=== PATIENT | female | born 2000 | race Caucasian/White ===

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

== ENCOUNTER 2022-09-07 13:41 | Outpatient (REF) | payer MEDICAID, SELFPAY ==
[2022-09-07 15:38] LABS: Abs Immature Grans 0.01 10^3/uL (0.0-0.06); Absolute Basophil Count 0.05 10^3/uL (0.0-0.2); Absolute Eosinophil Count 0.11 10^3/uL (0.0-0.7); Absolute Lymphocyte Count 2.68 10^3/uL (1.2-3.4); Absolute Monocyte Count 0.31 10^3/uL (0.1-0.8); Absolute Neutrophil Count 2.76 10^3/uL (1.2-6.7); Basophils % 0.8; Eosinophils % 1.9; HCT 41.4 % (36.0-46.0); Immature Grans % 0.2; Lymphocytes % 45.3; MCH 29.4 pg (27.0-33.0); MCHC 33.8 % (32.0-36.0); MCV 87 fL (80-95); MPV 11.2 fL (8.0-11.0); Monocytes % 5.2; Neutrophils % 46.6; Platelet Count 329 10^3/uL (130-400); RBC 4.76 10^6/uL (3.93-5.22); RDW 11.6 % (11.7-14.6); RDW-SD 36.9 fL; WBC 5.92 10^3/uL (4.4-10.8)
[2022-09-07 16:00] LABS: ALT 17 U/L (14-59); AST 22 U/L (15-37); Albumin 4.1 g/dL (3.4-5.0); Alkaline Phosphatase 87 U/L (46-116); Anion Gap 9.9 mmol/L (3-11); BUN 9 mg/dL (7-18); Bilirubin, Total 0.4 mg/dL (0.2-1.0); CO2 23.1 mmol/L (21.0-32.0); CREATININE 0.8 mg/dL (0.55-1.02); Chloride 106 mmol/L (98-107); Estimated GFR 108.11 (mL/min/1.73m2); Glucose 99 mg/dL (74-106); Potassium 4.4 mmol/L (3.5-5.1); Sodium 139 mmol/L (136-145); Total Protein 7.8 g/dL (6.4-8.2)
== END 2022-09-07 13:42 | disposition home or self-care (01) ==
LOC: NCHCN 13:41
PROVIDERS: Visit Provider Family Medicine
DX: R10.9 Unspecified abdominal pain (principal)
CPT/HCPCS: 80053; 85025

== ENCOUNTER 2022-09-16 19:05 | Emergency (ER) | payer MEDICAID, SELFPAY ==
[2022-09-16 19:12] VITALS: BP 128/82; PULSE 103; RESP 20; O2SAT 98
--- NOTE | 2022-09-16 21:00 | DI.RAD_ITS ---
Exam(s) XR FOOT RT COMPLETE EXAM: XR FOOT RT COMPLETE CLINICAL HISTORY: blunt trauma to distal 1-2nd metatarsal. TECHNIQUE: 2D digital imaging was performed. COMPARISON: No exams were available for comparison FINDINGS: 3 views No evidence of fracture or diastasis of the Elise odilon joint. Bone density normal. No osseous lesion s. No radiopaque foreign body. No degenerative changes. No osseous tarsal coalition. IMPRESSION: No significant osseous findings. DATA REPOSITORY: RADIATION DOSE DELIVERED:
[2022-09-16] MEDS: Ibuprofen 600 MG TAB PO (21:25)
--- NOTE | 2022-09-16 21:48 | DI.VRAD_ITS ---
PROCEDURE INFORMATION: Exam: XR Right Foot Exam date and time: 09/16/2022 21:28 Age: 22 years old Clinical indication: Injury or trauma; Other: Trauma to distal 1-2 metatarsal; Blunt trauma; Foot; Right TECHNIQUE: Imaging protocol: Radiologic exam of the right foot. Views: 3 or more views. COMPARISON: No relevant prior studies available. FINDINGS: Bones/joints: Minor hallux valgus and pes cavus. No acute fracture or subluxation. Soft tissues: Normal. IMPRESSION: No acute bony pathology. Dictated and Authenticated by: Chel Hernandez MD. Ordering:JANET Gibson MD
--- NOTE | 2022-09-16 21:50 | W.ED.GENAD ---
Discharge Plan Disposition Patient Disposition: Home Discharge Details Clinical Impression: Contusion of foot, right Primary Care Provider: Zora Ventura ED Provider: Arthur Kamara Home Meds and New Rx's Prescriptions: No Action polyethylene glycol 3350 [GlycoLax] 17 gram/dose powder 17 g PO DAILY Qty: 510 6RF Rx Instructions: 1 capful daily mixed with fluids- increase or decrease as needed to keep stools soft medroxyprogesterone [Depo-Provera] 150 mg/mL suspension 150 mg IM Q 12 WEEKS Qty: 1 3RF dexmethylphenidate [Focalin XR] 10 mg Capsule,Er Biphasic 50-50 10 mg PO DAILY fluoxetine 10 mg Tablet 10 mg PO DAILY Discharge Instructions Instructions: Foot Contusion (ED) Additional Instructions: You may continue to use [id number] ibuprofen as needed for further discomfort. You may perform weightbearing activities as tolerated feel free to return the emergency department for new or significant worsening of symptoms and if not improving over the next 1 to 2 weeks please follow with your primary care provider for reassessment. Referrals: Zora Ventura [Primary Care Provider] - Discharge Data Discharge Date/Time-TO BE ENTERED AT DEPARTURE: 09/16/22 22:00 Medical Decision Making Patient presenting the emergency department for chief complaint of right foot injury. She states she was jumping on trampoline and struck it on a table. Patient denies any other injury or trauma. Physical exam shows ecchymosis with slight swelling and tenderness to the distal aspects of the first and second metatarsal. Exam is otherwise unremarkable. Will perform radiological imaging and give ibuprofen pending results. Review of radiological imaging and radiologist interpretation shows no acute bony pathology. Patient given postop shoe and recommended weightbearing as tolerated along with [id number] meds and conservative management. After discussion of diagnosis and plan of care patient has no further needs, questions, or concerns and states clear understanding to return to the emergency department for any worsening symptoms. This documentation was generated using [employer] system, please disregard any oddities of phrase or misspellings. Imaging Data Radiologic Study: Attestation: I personally reviewed and interpreted this imaging study as follows: Imaging: X-Ray Radiologist's impression: Exam(s) PROCEDURE INFORMATION: Exam: XR Right Foot Exam date and time: 09/16/2022 21:28 Age: 22 years old Clinical indication: Injury or trauma; Other: Trauma to distal 1-2 metatarsal; Blunt trauma; Foot; Right TECHNIQUE: Imaging protocol: Radiologic exam of the right foot. Views: 3 or more views. COMPARISON: No relevant prior studies available. FINDINGS: Bones/joints: Minor hallux valgus and pes cavus. No acute fracture or subluxation. Soft tissues: Normal. IMPRESSION: No acute bony pathology. HPI General Mode of arrival: wheelchair. Date/Time Provider Initiated Documentation: 09/16/22 20:58. Limitations to Documentation: no limitations. Information obtained by: patient, family and RN notes reviewed. History of Present Illness 22 year old F presents to the emergency department with the chief complaint of Right foot injury, described as severe, with intensity rated at 10. Quality is described as sharp, and is localized to the right and lower extremity. Patient reports no radiation. Patient started experiencing this hour(s) (1) and it has been constant. No relieving factors improve symptom(s), No exacerbating factors reported . Patient notes no other symptoms.. Patient did receive the following treatments prior to arrival, none Related Data Home Medications Medication Instructions Recorded Confirmed polyethylene glycol 3350 17 17 g PO DAILY #510 grams 04/05/20 09/16/22 gram/dose oral powder (GlycoLax) medroxyprogesterone 150 mg/mL 150 mg IM Q 12 WEEKS #1 vial 11/18/20 09/16/22 intramuscular suspension (Depo-Provera) dexmethylphenidate 10 mg 10 mg PO DAILY 09/16/22 09/16/22 capsule,extended release [id number] (Focalin XR) fluoxetine 10 mg tablet 10 mg PO DAILY 09/16/22 09/16/22 Previous Rx's Medication Instructions Recorded polyethylene glycol 3350 17 17 g PO DAILY #510 grams 04/05/20 gram/dose oral powder (GlycoLax) medroxyprogesterone 150 mg/mL 150 mg IM Q 12 WEEKS #1 vial 11/18/20 intramuscular suspension (Depo-Provera) Allergies Allergy/AdvReac Type Severity Reaction Status Date / Time No Known Allergies Allergy Verified 06/10/21 08:31 General Stated Complaint: Orthopedic GURU: 3 Review of Systems Narrative: 6 systems reviewed and unremarkable except what is marked below. Musculoskeletal Musculoskeletal: Reports as per HPI, Reports arthralgias, Reports joint swelling, Reports limited range of motion and Reports tingling Integumentary/Breasts Skin/Breast: Denies wounds Neurologic Neurologic: Denies sensory deficit and Reports tingling PFSH All Active Problems (Updated 09/16/22 @ 21:55 by Arthur Kamara NP) Contusion of foot, right (Acute) Alleged drug diversion (Acute) SEE 01/10/20 NOTE CONCERN FOR DIVERSION BY MOM- will restart meds but just am vyvanse and not adderall in afternoon Attention deficit hyperactivity disorder (Acute 10/04/12) Medical History (Updated 09/16/22 @ 21:55 by Arthur Kamara NP) Acute pharyngitis ADHD (attention deficit hyperactivity disorder) Constipation Depo-Provera contraceptive status Learning difficulty Menorrhagia with irregular cycle Menorrhagia with regular cycle Upper respiratory infection Surgical History Tonsillectomy and adenoidectomy Family History Mother Hypothyroid Mental disorder Father Essential hypertension Hyperlipidemia Mental disorder Sister Age: 28 No problems noted. Sister Age: 24 No problems noted. Brother Age: 26 No problems noted. Grandfather Stroke Oral cancer Grandmother Colon cancer Ovarian cancer Other Short stature Social History Smoking/Tobacco Use Status: Current-Occasional Tobacco Type: cigarettes Smoking risk assessment performed?: Yes Alcohol Intake: never Substance use type: does not use Pets and animals: No Do you feel safe at home: Yes Do you feel safe in your relationship?: Yes Additional Social history: pt is not alone, unable to assess privately Female Reproductive History Menstrual control method: none History History 0 Para Hx # Term Pregnancies Multiple births Hx # Pregnancies Ectopic pregnancies AB induced Hx Number of Living Children AB spontaneous Exam Const General: cooperative, no acute distress and not ill appearing Orientation: alert, awake and oriented x3 HENMT Mouth: moist mucous membranes Resp Effort & Inspection: normal respiratory effort, able to speak in complete sentences and no respiratory distress Cardio Rate: regular rate Rhythm: regular rhythm Pulses: normal peripheral pulses Skin General skin exam: no rashes or lesions noted Neuro General: patient alert, patient awake, patient oriented x3, moves all extremities and no focal motor deficits Sensory Exam: no sensory deficits noted Extrem General: normal exam except as noted Right lower extremity: foot Details: normal capillary refill, tenderness Location: of the dorsal foot Location: distally and medially, toes with normal ROM, ecchymosis dorsal distal Details: single, vascular exam Details: dorsalis pedis pulse present and normal capillary refill and motor-sensory exam Details: two point discrimination normal and light-touch normal; no unusual warmth Course Vital Signs Vital signs: Vital Signs Pulse 103 H 09/16/22 19:12 Respiratory Rate 20 09/16/22 19:12 Blood Pressure 128/82 09/16/22 19:12 Pulse Oximetry 98 09/16/22 19:12 Pulse 103 H 09/16/22 19:12 Respiratory Rate 20 09/16/22 19:12 Respiratory Effort Normal 09/16/22 19:41 Blood Pressure 128/82 09/16/22 19:12 Pulse Oximetry 98 09/16/22 19:12 Oxygen Delivery Method Room Air 09/16/22 19:12 Oxygen Flow Rate 0 09/16/22 19:12 Pain Level 10 09/16/22 19:12 Lab/Test Results Lab/Test Results: POC- Test(urine) Negative
[2022-09-16 21:58] VITALS: BP 110/70; PULSE 72; RESP 16; O2SAT 98
== END 2022-09-16 22:00 | disposition home or self-care (01) ==
PROVIDERS: Emergency Provider Nurse Practitioner Family; PCP Nurse Practitioner Family
DX: S90.31XA Contusion of right foot, initial encounter (principal); Y99.8 Other external cause status; Y93.44 Activity, trampolining
CPT/HCPCS: 81025; 99283; 73630

== ENCOUNTER 2023-10-27 14:22 | Outpatient (REF) | payer MEDICAID, SELFPAY ==
--- NOTE | 2023-10-27 11:40 | PAPFT_PTH ---
PATIENT: Bethel Whitt LOC: [facility]#:[id number] AGE/SX: 23/F ROOM: RE10/27/[address]: Zora Ventura : 2000 BED: DIS: 10/27/2023 SPEC #: [id number] RECD: 10/28/23 12:27 STATUS: KERRI RETiana #: [id number] SAVANNAH: 10/27/23 11:[address]: Zora Ventura DEPT: [facility] Cytology RECD BY: Leigh Shrestha ENTERED: 10/28/23 12:28 SP TYPE: PAPFT OTHR DR: Unknown,Unknown Tissues: 1 - CX/ENDOCX FOR PAP SMEARS Procedures: PAP THIN PREP/UVM Screening Comments: [id number] (CHLAMYDIA/GC)
[2023-10-29 13:42] LABS: Chlamydia Result Negative (Negative); GC Result Negative (Negative)
== END 2023-10-27 14:23 | disposition home or self-care (01) ==
LOC: NCHCN 14:22
PROVIDERS: Visit Provider Nurse Practitioner Family
DX: Z00.00 Encounter for general adult medical examination without abnormal findings (principal); Z12.4 Encounter for screening for malignant neoplasm of cervix; Z11.51 Encounter for screening for human papillomavirus (HPV)
CPT/HCPCS: 87491; 87591; 88142

== ENCOUNTER 2025-01-08 19:44 | Emergency (ER) | payer MEDICAID, SELFPAY ==
[2025-01-08 19:46] VITALS: BP 131/95; PULSE 88; RESP 18; TEMP 36.6; O2SAT 98
[2025-01-08 20:04] VITALS: BP 131/95; PULSE 88; RESP 18; TEMP 36.6; O2SAT 98
[2025-01-08 20:27] LABS: Glucose Negative (Negative)
[2025-01-08] MEDS: Normal Saline 1,000 ML 1000 ML IV (20:30)
[2025-01-08 20:33] LABS: C & S Indicated? No
[2025-01-08 20:40] LABS: Abs Immature Grans 0.03 10^3/uL (0.0-0.06); HCT 40.0 % (36.0-46.0); HGB 13.5 g/dL (11.2-15.7); Immature Grans % 0.3 %; MCH 28.9 pg (27.0-33.0); MCHC 33.8 % (32.0-36.0); MCV 86 fL (80-95); MPV 10.5 fL (8.0-11.0); Platelet Count 326 10^3/uL (130-400); RBC 4.67 10^6/uL (3.93-5.22); RDW 11.9 % (11.7-14.6); RDW-SD 36.7 fL; WBC 9.05 10^3/uL (4.4-10.8)
[2025-01-08 20:54] LABS: ALT 41 U/L (14-59); AST 24 U/L (15-37); Albumin 4.0 g/dL (3.4-5.0); Alkaline Phosphatase 86 U/L (46-116); Anion Gap 7.1 mmol/L (3-11); BUN 6 mg/dL (7-18); Bilirubin, Total 0.3 mg/dL (0.2-1.0); CO2 26.9 mmol/L (21.0-32.0); Calcium 9.1 mg/dL (8.5-10.1); Chloride 105 mmol/L (98-107); Estimated GFR 106.77 (mL/min/1.73m2); Glucose 95 mg/dL (74-106); Lipase 37 U/L (<78); Potassium 3.8 mmol/L (3.5-5.1); Sodium 139 mmol/L (136-145); Total Protein 7.4 g/dL (6.4-8.2)
[2025-01-08 22:08] VITALS: BP 97/71; PULSE 85; RESP 16; O2SAT 99
--- NOTE | 2025-01-08 22:15 | W.ED.GENAD ---
Discharge Plan Disposition Patient Disposition: Home Condition: Stable Discharge Details Clinical Impression: Abdominal pain, Nausea & vomiting Primary Care Provider: Unknown,Unknown ED Provider: Bee Hinds Home Meds and New Rx's Prescriptions: New prochlorperazine maleate [Compazine] 5 mg tablet 5 mg PO BID PRNQty: 10 0RF Continued polyethylene glycol 3350 [GlycoLax] 17 gram/dose powder 17 g PO DAILY Qty: 510 6RF Rx Instructions: 1 capful daily mixed with fluids- increase or decrease as needed to keep stools soft fluoxetine 10 mg Tablet 10 mg PO DAILY Patient Comments: last taken 2 weeks ago quetiapine 50 mg tablet 50 mg PO HS Patient Comments: TAKE ONE TABLET BY MOUTH EVERY NIGHT NEEDED FOR SLEEP/ANXIETY Discharge Instructions Instructions: Viral Pharyngitis, Abdominal Pain, Adult ED, Nausea and Vomiting, Adult ED Additional Instructions: I ordered an ultrasound to evaluate your gallbladder, call first thing morning to schedule an appointment compazine as needed for nausea and vomiting Take Motrin and Tylenol as needed for pain Make sure you are drinking small frequent frequent amounts of fluid Very small frequent bland meals Please return should you have fever, chills, or with any new or worsening complaints Stand Alone Forms: Work Release Discharge Orders Other Ambulatory Orders: US abdomen limited (STAT) Timeframe: 20250118 Facility: [facility] - Location: DIAGNOSTIC IMAGING Ordered By: Bee Hinds [facility] General Date/Time Provider Initiated Documentation: 01/08/25 19:50. HPI Narrative: This 24-year-old female presents with report of sore throat earache and intermittent nausea and vomiting for the past month. She states she is currently trying to get . She has stopped her control several months ago. She has had normal periods. She states she some episodes of nausea in the morning and predominantly at night. She states she is able to hold down some food and fluids. She denies any fever or chills. She denies known sick contacts. Her partner is healthy and asymptomatic per patient. She denies any globus sensation when she swallows. Related Data Home Medications ?Medication ?Instructions ?Recorded ?Confirmed polyethylene glycol 3350 17 17 g PO DAILY #510 grams 04/05/20 01/08/25 gram/dose oral powder (GlycoLax) fluoxetine 10 mg tablet 10 mg PO DAILY 09/16/22 01/08/25 prochlorperazine maleate 5 mg 5 mg PO BID PRN #10 tabs 01/08/25 tablet (Compazine) quetiapine 50 mg tablet 50 mg PO HS 01/08/25 01/08/25 Previous Rx's ?Medication ?Instructions ?Recorded polyethylene glycol 3350 17 17 g PO DAILY #510 grams 04/05/20 gram/dose oral powder (GlycoLax) prochlorperazine maleate 5 mg 5 mg PO BID PRN #10 tabs 01/08/25 tablet (Compazine) Allergies Allergy/AdvReac Type Severity Reaction Status Date / Time No Known Allergies Allergy Verified 01/08/25 19:51 General Stated Complaint: Sorethroat GURU: 3 Exam Narrative Exam Narrative: Alert and oriented 24-year-old female no acute distress diffuse abdominal tenderness without rebound or guarding no CVA tenderness fully alert and oriented oropharynx patent uvula midline no erythema or exudates maintaining secretions normal phonation no trismus no occipital lymphadenopathy speaking complete sentences right ear without any evidence of infection Course Vital Signs Vital signs: Vital Signs Temperature 36.6 C 01/08/25 19:46 Pulse 88 01/08/25 19:46 Respiratory Rate 18 01/08/25 19:46 Blood Pressure 131/95 H 01/08/25 19:46 Pulse Oximetry 98 01/08/25 19:46 Temperature 36.6 C 01/08/25 20:04 Pulse 85 01/08/25 22:08 Respiratory Rate 16 01/08/25 22:08 Respiratory Effort Normal, Non-Labored 01/08/25 20:36 Respiratory Depth Normal 01/08/25 20:36 Respiratory Pattern Normal 01/08/25 20:36 Blood Pressure 97/71 L 01/08/25 22:08 Pulse Oximetry 99 01/08/25 22:08 Oxygen Delivery Method Room Air 01/08/25 20:36 Oxygen Flow Rate 0 01/08/25 20:36 Pain Level 4 01/08/25 20:04 Lab/Test Results Lab/Test Results: 01/08/25 20:02 Tonsil - Not Specified Group A Streptococcus Culture - Pending Laboratory Tests Range/Units 01/08/25 01/08/25 19:58 20:30 WBC (4.4-10.8) 10^3/uL 9.05 RBC (3.93-5.22) 10^6/uL 4.67 Hgb (11.2-15.7) g/dL 13.5 Hct (36.0-46.0) % 40.0 MCV (80-95) fL 86 MCH (27.0-33.0) pg 28.9 MCHC (32.0-36.0) % 33.8 RDW (11.7-14.6) % 11.9 Plt Count (130-400) 10^3/uL 326 MPV (8.0-11.0) fL 10.5 Immature Gran % % 0.3 Neutrophils % % 65.6 Lymphocytes % % 26.4 Monocytes % % 5.4 Eosinophils % % 1.9 Basophils % % 0.4 Nucleated RBC % (0.0-0.3) % 0.0 Absolute Neutrophils (1.2-6.7) 10^3/uL 5.93 Absolute Lymphocytes (1.2-3.4) 10^3/uL 2.39 Absolute Monocytes (0.1-0.8) 10^3/uL 0.49 Absolute Eosinophils (0.0-0.7) 10^3/uL 0.17 Absolute Basophils (0.0-0.2) 10^3/uL 0.04 Sodium (136-145) mmol/L 139 Potassium (3.5-5.1) mmol/L 3.8 Chloride (98-107) mmol/L 105 Carbon Dioxide (21.0-32.0) mmol/L 26.9 Anion Gap (3-11) mmol/L 7.1 BUN (7-18) mg/dL 6 L Creatinine (0.55-1.02) mg/dL 0.8 Est GFR (CKD-EPI 2020) (mL/min/1.73m2) 106.77 Glucose (74-106) mg/dL 95 Calcium (8.5-10.1) mg/dL 9.1 Total Bilirubin (0.2-1.0) mg/dL 0.3 AST (15-37) U/L 24 ALT (14-59) U/L 41 Alkaline Phosphatase (46-116) U/L 86 Total Protein (6.4-8.2) g/dL 7.4 Albumin (3.4-5.0) g/dL 4.0 Lipase (<78) U/L 37 Urine Color (Yellow) Yellow Urine Clarity (Clear) Clear Urine pH (5-8) 6.0 Ur Specific [place] (1.005-1.025) 1.010 Urine Protein (Neg-Trace) mg/dL Negative Urine Ketones (Negative) mg/dL Negative Urine Blood (Negative) Small H Urine Nitrite (Negative) Positive H Urine Bilirubin (Negative) Negative Urine Urobilinogen (Up to 0.2) mg/dL 1.0 H Ur Leukocyte Esterase (Negative) Trace H Urine RBC (0-2) HPF 3-5 H Urine WBC (0-5) HPF 5-10 Ur Epithelial Cells (Negative) HPF Moderate Urine Crystals (Negative) HPF Negative Urine Bacteria (Negative) HPF Packed Urine Casts (Negative) LPF Negative Urine Mucus (Negative) Negative Ur Culture Indicated? No Urine Glucose (Negative) mg/dL Negative POC- Test(urine) Negative POC Strep Test-CELINA(Rapid) Start: 01/08/25 19:51 Freq: .Rapid Strep Test Status: Active Protocol: Document 01/08/25 20:23 MATT (Rec: 01/08/25 20:23 MATT [id number]) Strep test-CELINA(Rapid)-POC POC-Strep test-CELINA ( Negative Rapid) POC-Strep test-CELINA (Rapid) Negative Medical Decision Making Results: CBC chemistry and lipase within normal limits POC negative urinalysis with nitrite positive but only 5-10 white blood cells, low suspicion for urinary tract infection patient is asymptomatic with urinary symptoms, negative stress test today Assessment and plan: Did recommend CT scan as patient has had nausea and vomiting for 1 month to evaluate gallbladder, she has declined this as she is concerned that she might be even though her POC test is negative. She was supplied with an outpatient ultrasound. She was given Compazine for home as needed for nausea and vomiting. She is able to take p.o. in the emergency department and she is discharged home in stable condition with [facility]als [facility] All Active Problems (Updated 01/08/25 @ 21:47 by JESSICA Nuno) Nausea & vomiting (Acute) Abdominal pain (Acute) Alleged drug diversion (Acute) SEE 01/10/20 NOTE CONCERN FOR DIVERSION BY MOM- will restart meds but just am vyvanse and not adderall in afternoon Attention deficit hyperactivity disorder (Acute 10/04/12) Medical History (Updated 01/08/25 @ 21:47 by JESSICA Nuno) Acute pharyngitis Upper respiratory infection Depo-Provera contraceptive status Menorrhagia with irregular cycle Menorrhagia with regular cycle Constipation Learning difficulty ADHD (attention deficit hyperactivity disorder) Surgical History Tonsillectomy and adenoidectomy Family History Mother Hypothyroid Mental disorder Father Essential hypertension Hyperlipidemia Mental disorder Sister Age: 31 No problems noted. Sister Age: 26 No problems noted. Brother Age: 29 No problems noted. Grandfather Stroke Oral cancer Grandmother Colon cancer Ovarian cancer Other Short stature Social History Smoking/Tobacco Use Status: Current-Occasional Tobacco Type: cigarettes Smoking risk assessment performed?: Yes Alcohol Intake: never Substance use type: does not use Pets and animals: No Do you feel safe at home: Yes Do you feel safe in your relationship?: Yes Additional Social history: pt is not alone, unable to assess privately Female Reproductive History Menstrual control method: none History History 0 Para Hx # Term Pregnancies Multiple births Hx # Pregnancies Ectopic pregnancies AB induced Hx Number of Living Children AB spontaneous
== END 2025-01-08 22:15 | disposition home or self-care (01) ==
LOC: ER 22:13
PROVIDERS: Emergency Provider Physician Assistant
DX: R11.2 Nausea with vomiting, unspecified; R07.0 Pain in throat; R10.817 Generalized abdominal tenderness
CPT/HCPCS: 36415; 80053; 81025; 83690; 87880; 96360; 99284; 81003; 81015; 85025; 87081